=== PATIENT | male | born 1945 | race Caucasian/White ===

== ENCOUNTER 2023-08-06 11:42 | Outpatient (CLI) | payer MEDICARE | END 2023-08-06 11:43 | disposition home or self-care (01) | LOC: BICULT 11:42 | PROVIDERS: ATTEND Internal Medicine Nephrology | DX: N18.2 Chronic kidney disease, stage 2 (mild) (principal) | CPT/HCPCS: 76770 ==

== ENCOUNTER 2025-09-10 11:15 | Inpatient (IN) | payer MEDICARE ==
[~2025-09-10 11:15] MED LIST: Iopamidol-370 76% 500 ML MDV (1 ML CHARGE) ONE
[2025-09-10 11:46] LABS: #Basophils 0.06 10x3/uL (0.0-0.2); #Eosinophils 0.15 10x3/uL (0.0-0.7); #Monocytes 0.58 10x3/uL (0.11-0.59); #Neutrophils 2.94 10x3/uL (1.40-6.50); %Basophils 1.2 % (0.0-1.0); %Eosinophils 3.0 % (0.0-10.0); %Lymphocytes 26.2 % (21.0-51.0); %Monocytes 11.4 % (0.0-10.0); %Neutrophils 58.0 % (42.0-75.0); Hematocrit 38.2 % (42.0-52.0); Hemoglobin 12.6 g/dL (14.0-18.0); Mean Corpuscular Hemoglobin 29.9 pg (27.0-31.0); Mean Corpuscular Volume 90.7 fL (78.0-98.0); Platelet Count 206 10x3/uL (130-400); Red Blood Cell (RBC) Count 4.21 mill/uL (4.70-6.10); White Blood Cell (WBC) Count 5.07 10x3/uL (4.8-10.8)
[2025-09-10 12:29] LABS: Bacteria/HPF None Seen HPF (None Seen); CAUTI Indications for Culture Acute Hematuria; Glucose, Urine (Dipstick) Normal (Negative); Leukocyte Negative Leu/uL (Negative); Protein, Urine (Dipstick) Negative (Neg-Trace); RBC/HPF 0-3 HPF (0-3); Specific Gravity, Urine Greater than 1.050 (1.002-1.036); WBC/HPF 0-3 HPF (0-3)
[2025-09-10 12:30] LABS: Urine Culture Reflex No No
[2025-09-10 12:34] LABS: ALT (SGPT) 10 U/L (Less than 45); AST (SGOT) 20 U/L (11-34); Albumin 3.9 g/dL (3.1-4.5); Alkaline Phosphatase 40 U/L (40-110); Anion Gap 11 mmol/L (10-20); BUN (Urea Nitrogen) 17 mg/dL (8.4-25.7); Bilirubin, Total 1.0 mg/dL (0.3-1.2); Calc. Creatinine Clearance 0 mL/min (70-130); Calcium 9.2 mg/dL (7.8-10.44); Carbon Dioxide 26 mmol/L (23-31); Chloride 108 mmol/L (98-107); Globulin 2.7 g/dL (2.4-3.5); Glucose 104 mg/dL (83-110); Potassium 4.0 mmol/L (3.5-5.1); Sodium 141 mmol/L (136-145)
[2025-09-10] MEDS ORDERED: Aspirin Chewable 81 MG TAB ONE (13:37)
[2025-09-10] MEDS ORDERED: Guaifenesin DM 100-10/5 ML UDCUP PO PRN (14:41)
[2025-09-10] MEDS ORDERED: Ondansetron PF 4 MG/2 ML Vial IVP PRN (14:41)
[2025-09-10] MEDS ORDERED: hydrALAZINE 20 MG/ML VIAL SLOW IVP PRN (14:41)
[2025-09-10] MEDS ORDERED: Electrolyte Replacement Protocol 1 EACH FS SCH (14:45)
[2025-09-10] MEDS ORDERED: Magnesium 2 GM/50 ML(in water) 2 GM in Premix 1 BAG IVPB PRN (15:00)
[2025-09-10] MEDS ORDERED: Potassium Chloride 20 MEQ in Premix 1 BAG IVPB PRN (15:00)
[2025-09-10] MEDS ORDERED: PHOS-NAK 1 PKT PACK PO PRN (15:00)
[2025-09-10] MEDS: Famotidine/PF 20 mg/2ml Vial SLOW IVP SCH (23:41)
[2025-09-10] MEDS: Famotidine 20 MG TAB PO SCH (23:41)
[2025-09-11] VITALS: BMI 19.2
[2025-09-11 04:04] LABS: #Basophils 0.06 10x3/uL (0.0-0.2); #Eosinophils 0.24 10x3/uL (0.0-0.7); #Monocytes 0.65 10x3/uL (0.11-0.59); #Neutrophils 3.63 10x3/uL (1.40-6.50); %Basophils 1.0 % (0.0-1.0); %Eosinophils 4.1 % (0.0-10.0); %Lymphocytes 21.8 % (21.0-51.0); %Monocytes 11.1 % (0.0-10.0); %Neutrophils 61.8 % (42.0-75.0); Hematocrit 35.1 % (42.0-52.0); Hemoglobin 11.9 g/dL (14.0-18.0); Mean Corpuscular Hemoglobin 30.7 pg (27.0-31.0); Mean Corpuscular Volume 90.5 fL (78.0-98.0); Platelet Count 189 10x3/uL (130-400); Red Blood Cell (RBC) Count 3.88 mill/uL (4.70-6.10); White Blood Cell (WBC) Count 5.87 10x3/uL (4.8-10.8)
[2025-09-11 04:21] LABS: ALT (SGPT) 9 U/L (Less than 45); AST (SGOT) 17 U/L (11-34); Albumin 3.5 g/dL (3.1-4.5); Alkaline Phosphatase 37 U/L (40-110); Anion Gap 13 mmol/L (10-20); BUN (Urea Nitrogen) 15 mg/dL (8.4-25.7); Bilirubin, Total 0.8 mg/dL (0.3-1.2); Calc. Creatinine Clearance 61 mL/min (70-130); Calcium 8.8 mg/dL (7.8-10.44); Carbon Dioxide 27 mmol/L (23-31); Cardiac Risk 3.8 (Less than 4.5); Chloride 109 mmol/L (98-107); Cholesterol 210 mg/dl (< 200 Desired); Globulin 2.4 g/dL (2.4-3.5); Glucose 107 mg/dL (83-110); HDL Cholesterol 56 mg/dL (>60 Neg Risk); LDL Cholesterol, Calculated 141 mg/dL; Potassium 3.9 mmol/L (3.5-5.1); Sodium 145 mmol/L (136-145); Triglycerides 65 mg/dL (Less than 150)
[2025-09-11] MEDS: Enoxaparin 40 MG (0.4 mL) SYRINGE SC SCH (08:48)
[2025-09-11] MEDS: Aspirin 81 mg Enteric Coated Tablet PO SCH (08:48)
[2025-09-11 13:27] VITALS: BMI 19.2
[2025-09-11] MEDS: Apixaban 5 MG TAB PO SCH (20:13)
[2025-09-12 11:22] LABS: Anion Gap 16 mmol/L (10-20); Carbon Dioxide 27 mmol/L (23-31); Chloride 103 mmol/L (98-107); Potassium 3.5 mmol/L (3.5-5.1); Sodium 142 mmol/L (136-145)
[2025-09-12 12:03] LABS: Magnesium 2.3 mg/dL (1.6-2.6)
[2025-09-12] MEDS: Acetaminophen 325 MG TAB PO PRN (16:08)
[2025-09-12] MEDS ORDERED: QUEtiapine 25 MG TAB PO SCH (21:00)
[2025-09-13 10:46] LABS: Magnesium 2.1 mg/dL (1.6-2.6); Potassium 3.8 mmol/L (3.5-5.1)
[2025-09-13 11:41] VITALS: BP 106/57; TEMP 97.9
== END 2025-09-13 15:45 | disposition home health service (06) | DRG 65 ==
LOC: ERS 11:15 → ERHOLD 14:16 → 2SE 22:04
PROVIDERS: ADMIT Family Medicine; ATTEND Hospitalist
DX: I63.531 Cerebral infarction due to unspecified occlusion or stenosis of right posterior cerebral artery (principal); G81.94 Hemiplegia, unspecified affecting left nondominant side; R29.704 NIHSS score 4; R47.81 Slurred speech; G31.83 Neurocognitive disorder with Lewy bodies; F02.80 Dementia in other diseases classified elsewhere, unspecified severity, without behavioral disturbance, psychotic disturbance, mood disturbance, and anxiety; Z88.1 Allergy status to other antibiotic agents; Z66 Do not resuscitate; R47.1 Dysarthria and anarthria; Z79.01 Long term (current) use of anticoagulants; I48.0 Paroxysmal atrial fibrillation; Z87.891 Personal history of nicotine dependence; Z87.442 Personal history of urinary calculi
CPT/HCPCS: 36415; 36416; 70450; 70496; 70498; 70551; 71045; 80051; 80053; 80061; 81001; 83036; 83605; 83735; 84132; 84443; 84484; 85025; 93005; 93306; 96374; J1650; J2060; Q9967